=== PATIENT | male | born 1975 | race Caucasian/White ===

== ENCOUNTER 2021-01-20 00:28 | Emergency (ER) | payer OTHER ==
--- NOTE | 2021-01-20 01:08 | EDM.PDOC ---
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 He completed his assigned tasks and was walking into an air conditioned control room when he suddenly became dizzy, lightheaded, broke out into a profuse sweat, and became short of breath. He was treated by his local safety personnel and sent to the hospital for dilation. Prior to this incident he was in his normal state of health and had no fever, chills, upper respiratory symptoms, chest pain, shortness of breath, change in bowel or bladder habits. - Related Data Allergies Allergy/AdvReac Type Severity Reaction Status Date / Time No Known Allergies Allergy Verified 01/20/21 00:46 Home Meds: Home Meds NK [No Known Home Meds] 01/20/21 [History] ED ROS GENERAL - Review of Systems Review Of Systems: See Below Constitutional: Reports: Malaise, Weakness HEENT: Reports: No Symptoms Respiratory: Reports: Shortness of Breath Cardiovascular: Reports: No Symptoms Endocrine: Reports: No Symptoms GI/Abdominal: Reports: No Symptoms : Reports: No Symptoms Musculoskeletal: Reports: No Symptoms Skin: Reports: No Symptoms Neurological: Reports: Dizziness, Difficulty Walking Psychiatric: Reports: No Symptoms Hematologic/Lymphatic: Reports: No Symptoms Immunologic: Reports: No Symptoms ED EXAM, GENERAL - Physical Exam Exam: See Below Exam Limited By: No Limitations General Appearance: Alert, No Apparent Distress Eye Exam: Bilateral Eye: EOMI Head: Atraumatic, Normocephalic Neck: Normal Inspection. No: Lymphadenopathy (R), Lymphadenopathy (L) Respiratory/Chest: No Respiratory Distress, Lungs Clear, Normal Breath Sounds Cardiovascular: No Murmur, Tachycardia Peripheral Pulses: 2+: Radial (L), Radial (R), Dorsalis Pedis (L), Dorsalis Pedis (R) GI/Abdominal: Normal Bowel Sounds, Soft, Non-Tender Back Exam: Normal Inspection. No: CVA Tenderness (R), CVA Tenderness (L) Extremities: Normal Inspection Neurological: Alert, Oriented, CN II-XII Intact, Normal Cognition, Normal Gait Psychiatric: Normal Affect, Normal Mood Skin Exam: Warm, Dry, Intact Course - Vital Signs Text/Narrative:: Review of labs shows that electrolytes are within normal limits. Potassium is near the lower limit of normal. Labs do show that he has an acute kidney injury with a creatinine of 1.6. Patient does not have any history of renal disease. Will be given 1 L of lactated Ringer's. Last Recorded V/S: Last Vital Signs Temp 36.8 C 01/20/21 00:50 Pulse 101 H 01/20/21 00:50 Resp 14 01/20/21 00:50 BP 137/86 01/20/21 00:50 Pulse Ox 93 L 01/20/21 00:50 - Orders/Labs/Meds Orders: Active Orders 24 hr Category Date Time Status Lactated Ringers [Ringers, Lactated] 1,000 ml Med 01/20/21 02:00 Active IV ASDIRECTED Medication Orders Lactated Ringer's (Ringers, Lactated) 1,000 mls @ 999 mls/hr IV ASDIRECTED AMANDA Last Admin: 01/20/21 02:04 Dose: 999 mls/hr Documented by: KALPANA Labs: Laboratory Tests 01/20/21 01/20/21 01/20/21 Range/Units 01:06 01:06 01:06 WBC 9.6 (3.2-10.1) x10-3/uL RBC 5.18 (3.90-5.90) x10(6)uL Hgb 16.3 (12.9-17.7) g/dL Hct 47.7 (38.3-50.1) % MCV 92.0 (80.8-98.7) fL MCH 31.5 (27.0-33.3) pg MCHC 34.2 (28.7-35.3) g/dL RDW 13.1 (12.4-15.0) % Plt Count 212 (117-477) x10(3)uL MPV 9.1 (6.7-11.0) fL Neut % (Auto) 71.5 (40.3-71.8) % Lymph % (Auto) 18.8 (15.8-45.3) % [place] % (Auto) 7.8 (5.5-15.2) % Eos % (Auto) 1.5 (0.1-6.8) % Baso % (Auto) 0.4 (0.3-3.8) % Neut # (Auto) 6.8 (1.7-6.9) x10-3/uL Lymph # (Auto) 1.8 (0.5-4.5) x10-3/uL [place] # (Auto) 0.8 (0.0-1.2) x10-3/uL Eos # (Auto) 0.1 (0.0-0.6) x10-3/uL Baso # (Auto) 0.0 (0.0-0.3) x10-3/uL Sodium 142 (135-145) mmol/L Potassium 3.8 (3.5-5.3) mmol/L Chloride 103 (100-110) mmol/L Carbon Dioxide 26 (21-32) mmol/L BUN 14 (7-18) mg/dL Creatinine 1.6 H (0.70-1.30) mg/dL Est Cr Clr Drug Dosing 65.89 mL/min Estimated GFR (MDRD) 47 L (>60) BUN/Creatinine Ratio 8.8 L (9-20) Glucose 117 H (80-116) mg/dL Calcium 9.5 (8.6-10.2) mg/dL Total Bilirubin 0.6 (0.1-1.3) mg/dL AST 21 (5-25) IU/L ALT 45 H (12-36) U/L Alkaline Phosphatase 96 (56-112) IU/L Troponin I 7.9 (4.0-60.3) pg/mL Total Protein 7.3 (6.0-8.0) g/dL Albumin 4.2 (3.5-5.2) g/dL Globulin 3.1 g/dL Albumin/Globulin Ratio 1.4 Meds: Medications Generic Name Dose Route Start Last Admin Trade Name Freq PRN Reason Stop Dose Admin Lactated Ringer's 1,000 mls @ 999 mls/hr 01/20/21 02:00 01/20/21 02:04 Ringers, Lactated IV 999 mls/hr ASDIRECTED AMANDA Administration Departure - Departure Time of Disposition: 02:12 Disposition: Home, Self-Care 01 Condition: Good Clinical Impression: Heat exhaustion, Acute kidney injury - Discharge Information *PRESCRIPTION DRUG MONITORING PROGRAM REVIEWED*: Not Applicable *COPY OF PRESCRIPTION DRUG MONITORING REPORT IN PATIENT RENAY: Not Applicable Instructions: Heat Exhaustion, Acute Kidney Injury, Adult Referrals: Costa Thompson MD [Primary Care Provider] - Additional Instructions: Advised the patient to ensure that he drinks plenty of fluids including fluids with electrolytes such as Gatorade, Powerade, etc. I advised him to follow-up with his primary care physician. I talked to the patient about smoking cessation and weight loss. Sepsis Event Note (ED) - Focused Exam Vital Signs: Vital Signs Temp Pulse Resp BP Pulse Ox 01/20/21 00:50 36.8 C 101 H 14 137/86 93 L - My Orders Last 24 Hours: My Active Orders 01/20/21 02:00 Lactated Ringers [Ringers, Lactated] 1,000 ml IV ASDIRECTED - Assessment/Plan Last 24 Hours: My Active Orders 01/20/21 02:00 Lactated Ringers [Ringers, Lactated] 1,000 ml IV ASDIRECTED
[2021-01-20] MEDS ORDERED: Lactated Ringers 1,000 ML IV SCH (02:00)
== END 2021-01-20 03:20 | disposition home or self-care (01) ==
LOC: FB.ED 00:28
DX: T67.5XXA Heat exhaustion, unspecified, initial encounter (principal); N17.9 Acute kidney failure, unspecified
CPT/HCPCS: 36415; 80053; 84484; 85025; 99000; 99284; J7120

== ENCOUNTER 2024-06-30 17:59 | Emergency (ER) | payer OTHER ==
[2024-06-30] MEDS: Lidocaine/Epineph/Tetracaine 3 ML Syringe TOP ONE (19:10)
== END 2024-06-30 20:22 | disposition home or self-care (01) ==
LOC: FB.ED 17:59
DX: S61.211A Laceration without foreign body of left index finger without damage to nail, initial encounter (principal); F17.210 Nicotine dependence, cigarettes, uncomplicated; W23.1XXA Caught, crushed, jammed, or pinched between stationary objects, initial encounter
CPT/HCPCS: 12001; 73140-F1; 99283; A9270-GY